=== PATIENT | male | born 1935 | race Caucasian/White ===

== ENCOUNTER → 2023-07-16 11:00 | Outpatient (REF) | payer MEDICARE, SELFPAY ==
[2023-07-16 12:46] LABS: PSA, Total - Diagnostic 6.81 ng/ml (0.0-4.0)
== END ==
LOC: OLABPV 11:00
PROVIDERS: ATTENDING PHYSICIAN Specialist
DX: R35.1 Nocturia (principal)
CPT/HCPCS: 36415; 84153

== ENCOUNTER → 2023-09-12 10:40 | Outpatient (REF) | payer MEDICARE, SELFPAY ==
[2023-09-12 11:30] LABS: Hematocrit 43.2 % (39.0-52.0); Hemoglobin 14.5 g/dL (13.0-18.0)
[2023-09-12 12:39] LABS: Protein/creatinine Ratio 0.5; Urine Protein 36 mg/dl
[2023-09-12 12:51] LABS: Albumin 4.4 g/dl (3.5-5.0); Blood Urea Nitrogen 37 mg/dl (9-20); Calcium 9.5 mg/dl (8.4-10.2); Carbon Dioxide 25 mmol/L (22-30); Chloride 106 mmol/L (98-107); Glucose 90 mg/dl (70-99); Phosphorus 3.9 mg/dl (2.5-4.5); Potassium 4.2 mmol/L (3.5-5.1); Sodium 139 mmol/L (135-145); eGFR 40.93
[2023-09-12 16:19] LABS: Intact PTH 62.3 pg/ml (13.6-85.8)
== END ==
LOC: OLABPV 10:40
PROVIDERS: ATTENDING PHYSICIAN Specialist
DX: N18.32 Chronic kidney disease, stage 3b (principal)
CPT/HCPCS: 36415; 80069; 82570; 83970; 84156; 85014; 85018

== ENCOUNTER 2023-10-11 23:24 | Observation (INO) | payer MEDICARE, BC, SELFPAY ==
[2023-10-11] VITALS (8 sets, daily range): BP systolic 132–161; BP diastolic 73–93
[2023-10-11 18:24] LABS: % Basophils 0.7 % (0-2); % Eosinophils 3.4 % (0-6); % Immature Granulocytes 0.3 % (0-0.5); % Lymphocytes 15.4 % (20.5-51.1); % Monocytes 11.7 % (1.7-9.3); % Neutrophils 68.5 % (42.2-75.2); Absolute Basophils 0.1 10^3/uL (0-0.2); Absolute Eosinophils 0.3 10^3/uL (0-0.7); Absolute Lymphocytes 1.1 10^3/uL (1.2-3.4); Absolute Monocytes 0.9 10^3/uL (0.1-0.6); Hematocrit 40.7 % (39.0-52.0); Hemoglobin 14.4 g/dL (13.0-18.0); Mean Corp Hgb Conc. 35.4 g/dL (33.0-37.0); Mean Corpuscular Hgb 29.4 pg (27.0-31.0); Mean Corpuscular Volume 83.1 fL (80.0-94.0); Mean Platelet Volume 11.5 fL (7.4-10.4); Nucleated Red Blood Cells % 0 % (-); Platelet Count 170 10^3/uL (130-400); Red Cell Dist. Width 15.9 % (11.5-14.5); White Blood Cell Count 7.3 10^3/uL (4.8-10.8)
[2023-10-11] MEDS: NSS 500 IV (18:37)
[2023-10-11] MEDS: ZOFRAN 4 MG IV (18:38)
[2023-10-11] MEDS: TYLENOL 1000 MG PO (18:42)
[2023-10-11 18:47] LABS: Blood Urea Nitrogen 41 mg/dl (9-20); Calcium 9.9 mg/dl (8.4-10.2); Carbon Dioxide 22 mmol/L (22-30); Chloride 105 mmol/L (98-107); Estimated Creatinine Clearance 32 ml/min; Glucose 119 mg/dl (70-99); Sodium 135 mmol/L (135-145); eGFR 38.06
[2023-10-11] MEDS: MORPHINE SULFATE 2 MG IV (20:59)
--- NOTE | 2023-10-11 21:11 | ED.GENMED ---
History of Present Illness
<Agueda Queen PA-C - Last Filed: 10/11/23 22:24>
General
Chief Complaint: Fall
Source: patient
Exam Limitations: none
Time Seen by Provider: 10/11/23 18:01
Nursing documentation reviewed up to this point in time: agreed with
Travel History
Have you had any contact with someone who has COVID-19?: No
Do you have any symptoms of coronavirus? Fever > 100 degrees, chills, cough, shortness of breath, sore throat, loss of taste or smell, muscle aches, or headache?: No
History of Present Illness
History of Present Illness:
pt is a 88 y/o M with h/o afib s/p wtachman, on aspirin, GI bleed remotely, cva/tia
here after he had a fall this afternoon
pt was he walked up a hill to the parking lot and when he got up to the top of the hill, he dosnt' know what hpapened, legs gave out or whatnot but he fell on to right side/back
he did not hit head
he knows he didn't pass out
had no chest pain, preceding symptoms of dizziness, lightheadedness, headache
pt has right sided back pain, worse with changing position and movement
he has no pain with breathing and denies SOB to me, dstpie triage c/o shortness o fbreath
he has nauea and was dry heaving almost mimmediately after this fall
had to be helped by 2 men to be picked up
no hip pain/abdominal pain/confusion
abrasions superfoicial to right arm
Past History
<Agueda Queen PA-C - Last Filed: 10/11/23 22:24>
Past History
ED Past Medical History: Arrthythmia (AFib), Asthma, HTN, Hypercholesterolemia, Other (Parotid mass w/ resection; gout), Other (Nephrolithiasis) and Other (Polycystic kidneys, hypertension)
ED Past Surgical History: Other (Parotid mass w/ resection)
Social History
Tobacco: Non-smoker
Alcohol: Occasional
Drug: None
Personal:
Living: with family (at [employer])
Employment: Retired
Family History
Family History: Other (Polycystic kidney disease)
Review of Systems
<Agueda Queen PA-C - Last Filed: 10/11/23 22:24>
Review of Systems
Allergies reviewed?: Yes
All Other Systems: Not applicable
Phy Exam
<Agueda Queen PA-C - Last Filed: 10/11/23 22:24>
Physical Exam
Physical Exam:
GENERAL: Alert , in no apparent distress
HEAD: NCAT
NECK: no midline tenderness, active ROM intact, no paraspinal muscle tenderness;
EYE: pupils equal and reactive, EOMs intact.
ENT: o/p clr, mmm. no hemotympanum
CARDIAC: Regular rate and rhythm, no edema
BACK: RIGHT SIDED NONTENDER SCAPULA/THORACIC/CVA REGION, NO BRUISING, NO SWELLING
PAIN WITH MOVEMENT
CHEST WALL: NONTENDER
LUNGS: Clear breath sounds bilaterally, no acute respiratory distress, no wheezes/rales/rhonchi
ABDOMEN: Soft, without focal tenderness, no r/g, no cvat
NEUROLOGICAL: Alert and oriented, no focal neuro deficits, CN intact, 5/5 strength, sensation intact
SKIN: Warm and dry, SUPERFIIAL ABRASIONS RIGHT FOREARM
MUSCULOSKELETAL: No edema, well perfused.
PSYCH: Normal and appropriate interaction.
Course
<Agueda Queen PA-C - Last Filed: 10/11/23 22:24>
Orders/Labs/Results
Orders:
Orders
10/11/23 18:00
Electrocardiogram (*1) Urgent
Reason for Study: Vertigo / Dizzy
10/11/23 18:01
EKG- Treatment ONCE
10/11/23 18:13
Basic Metabolic Panel Urgent
Complete Blood Count/With Diff Urgent
10/11/23 18:27
CT Chest/abd/pel W Iv Cont Urgent
Comment:
Reason For Exam: FALL BACKWARDS, RIGHT THORACIC/BACK PAIN, VOMITING
CT Head W/o Iv Contrast Urgent
Comment:
Reason For Exam: FALL BACKWARDS
0.9% Sodium Chloride 500 ml [Nss] 500 ml IV BOLUS
Acetaminophen [Tylenol] 1,000 mg PO NOW STA
Ondansetron Injectable [Zofran] 4 mg IV NOW STA
10/11/23 20:53
Morphine Sulfate 2 mg IV NOW STA
10/11/23 21:06
Potassium Urgent
Troponin I Urgent
Abnormal Lab Results
10/11/23
18:13
RDW 15.9 H %
(11.5-14.5)
MPV 11.5 H fL
(7.4-10.4)
Absolute Lymphs (auto) 1.1 L 10^3/uL
(1.2-3.4)
Absolute Monos (auto) 0.9 H 10^3/uL
(0.1-0.6)
Lymphocytes % 15.4 L %
(20.5-51.1)
Monocytes % 11.7 H %
(1.7-9.3)
BUN 41 H mg/dl
(9-20)
Creatinine 1.7 H mg/dL
(0.7-1.3)
Glucose 119 H mg/dl
(70-99)
10/11/23 18:13
10/11/23 21:06
Vital Signs
Initial and Last Documented VS:
Initial Vital Signs
Temp Pulse Resp BP Pulse Ox
37.4 C 72 18 142/75 95
10/11/23 15:58 10/11/23 15:58 10/11/23 15:58 10/11/23 15:58 10/11/23 15:58
Last Documented Vital Signs
Temp Pulse Resp BP Pulse Ox
37.4 C 72 14 137/73 92
10/11/23 15:58 10/11/23 22:00 10/11/23 22:00 10/11/23 22:00 10/11/23 22:00
<Ulices Bowman MD - Last Filed: 10/11/23 23:01>
Orders/Labs/Results
Orders:
Orders
10/11/23 18:00
Electrocardiogram (*1) Urgent
Reason for Study: Vertigo / Dizzy
10/11/23 18:01
EKG- Treatment ONCE
10/11/23 18:13
Basic Metabolic Panel Urgent
Complete Blood Count/With Diff Urgent
10/11/23 18:27
CT Chest/abd/pel W Iv Cont Urgent
Comment:
Reason For Exam: FALL BACKWARDS, RIGHT THORACIC/BACK PAIN, VOMITING
CT Head W/o Iv Contrast Urgent
Comment:
Reason For Exam: FALL BACKWARDS
0.9% Sodium Chloride 500 ml [Nss] 500 ml IV BOLUS
Acetaminophen [Tylenol] 1,000 mg PO NOW STA
Ondansetron Injectable [Zofran] 4 mg IV NOW STA
10/11/23 20:53
Morphine Sulfate 2 mg IV NOW STA
10/11/23 21:06
Potassium Urgent
Troponin I Urgent
Abnormal Lab Results
10/11/23
18:13
RDW 15.9 H %
(11.5-14.5)
MPV 11.5 H fL
(7.4-10.4)
Absolute Lymphs (auto) 1.1 L 10^3/uL
(1.2-3.4)
Absolute Monos (auto) 0.9 H 10^3/uL
(0.1-0.6)
Lymphocytes % 15.4 L %
(20.5-51.1)
Monocytes % 11.7 H %
(1.7-9.3)
BUN 41 H mg/dl
(9-20)
Creatinine 1.7 H mg/dL
(0.7-1.3)
Glucose 119 H mg/dl
(70-99)
10/11/23 18:13
10/11/23 21:06
Vital Signs
Initial and Last Documented VS:
Initial Vital Signs
Temp Pulse Resp BP Pulse Ox
37.4 C 72 18 142/75 95
10/11/23 15:58 10/11/23 15:58 10/11/23 15:58 10/11/23 15:58 10/11/23 15:58
Last Documented Vital Signs
Temp Pulse Resp BP Pulse Ox
37.4 C 72 14 137/73 92
10/11/23 15:58 10/11/23 22:00 10/11/23 22:00 10/11/23 22:00 10/11/23 22:00
<Agueda Queen PA-C - Last Filed: 10/11/23 22:24>
MDM/Problems Addressed
Differential Diagnosis Includes:
retroperitoneal hem, liver injury, kidney injury, ruptured cyst, rib fracture, concussion
MDM/Problems Addressed:
88 y/o M from home after fall when he walked up a hill today and got to the top and then his legs gave out, landed on right side, has right sided mid to upper back pain
no pleuritic pain, sob
but dry heaving/nausea since the incident
no head strike
only ion asa after having watchmann
no chest pain
on exam pt has some pain with omvement of his trunk but no swelling/tedneress to back/no bruising
faint crackles b/l lungs bases
abdomen nontender
ekg rate controlled afib
labs with stable CKD
gfr> 35
will trauma scan
no neck pain
pt returnd from ct scan no traumatic findings
nothing to explain pain
when pt returned from ct scan, pt walked to bathroom and returned to bed and was dry heaving and then vomited; likely related to pain but thus added on troponin to eval for ACS
the trop was neg
pt received morphine and feels still having pain with moement and gets nauseated with movement
no rib fx identified on ct
seen by ed attending
pt lives alone at [facility] and is not well enough to go home at this point.
will admit
<Agueda Queen PA-C - Last Filed: 10/11/23 22:24>
*Critical Care Note
Total Time (30-74mins, 75-104mins- exclusive of procedures): Not Applicable
ED Attending Note
<Agueda Queen PA-C - Last Filed: 10/11/23 22:24>
-
Portions of this chart may have been created with voice recognition software.� Occasional wrong word or��sound alike� substitutions may have occurred due to the inherent limitations of voice recognition software.
<Ulices Bowman MD - Last Filed: 10/11/23 23:01>
ED Attending Note
Patient seen and examined by attending physician: Yes
ED Attending Note:
I have seen and evaluated the patient with a [id number] encounter. I have spoken to the advance practicer provider and involved in the medical history, the physical exam, medical decision making.
Evaluation and management service: agree unless noted differently below.
Results interpretation: agree unless noted differently below.
Focused HPI: 88-year-old male with history as documented who presents for evaluation after fall. Patient says that he was walking up a incline/hill in a parking lot just prior to arrival here. He says that he lost his balance and fell backwards
and landed on his back. He says he did not hit his head. He sustained some minor abrasions to his arm but no other serious injuries. His only complaint here is significant right flank/back pain. He says that this pain is much worse with any
movement. He says that when the pain gets very intense he gets nausea and he did have some vomiting here. He says that he did not hit his head or lose consciousness, denies headache, denies any neck pain, denies any abdominal pain. On aspirin but
no other blood thinners.
Physical exam: Awake and alert, oriented x 3 with GCS 15. Vital signs normal. No anterior chest wall tenderness but he does have some tenderness in the posterior ribs�specifically ribs 9 and 10 posteriorly (in line with the scapula); he has no
contusion or hematoma in the flank. He has bilateral breath sounds. He has no abdominal tenderness. He has no signs of significant trauma to the extremities and moves them all through full active range of motion without discomfort including
bilateral hips.
Medical Decision Makin-year-old male presents after a fall in a parking lot onto his back complaining of back/flank pain. Vital stable. Exam as above. Sent for labs including a CBC and CMP which were unremarkable�she has a creatinine of 1.7
which is baseline. We checked an EKG and troponin given his nausea�troponin negative. He was sent for a CT head which was negative as well as a CT of the chest/abdomen/pelvis which was negative for fracture, hematoma or any other acute pathology
to account for his pain. Suspect it may be muscular pain due to the fall. He does have significant pain with movement to the point that he becomes nauseated. He lives alone at [facility]. Will plan to admit for pain control, PT eval and case
management with consideration for placement in rehab.
Discharge Plan
Departure
Patient Disposition: Admit
Date of Disposition: 10/11/23
Time of Disposition: 22:24
Admit to: Med/Surg
Presentation/result/management discussed w/ accepting MD/DO: Hospitalist
Condition: Fair
Covid-19: Not Applicable
Discharge Problem:
Back pain, Fall, Vomiting
Prescriptions:
No Action
diltiazem HCl 180 MG capsule,extended release 24hr
180 mg PO DAILY
amlodipine 5 MG tablet
5 mg PO BID
tamsulosin 0.4 MG capsule
0.4 mg PO QPM
allopurinol 300 MG tablet
300 mg PO DAILY
finasteride 5 MG tablet
5 mg PO HS
lisinopril 20 MG tablet
20 mg PO BID
cholecalciferol (vitamin D3) 125 MCG tablet,disintegrating
5,000 unit PO DAILY
acetaminophen 500 mg Capsule
1,000 mg PO Q6HPRN PRN (Reason: mild pain)
pravastatin 40 mg Tablet
40 mg PO HS
bismuth subsalicylate [Pepto-Bismol] 262 mg/15 mL Suspension
524 mg PO DAILYPRN PRN (Reason: stomach issues)
aspirin 81 MG tablet,delayed release (DR/EC)
81 mg PO DAILY
Rx Instructions:
Please take daily!
Referrals:
Ivan Chacko MD [Family Provider] -
Interventions
Interventions:
*Risk Screen - Suicide Last Done: 10/11/23 18:02
*General Assessment Last Done: 10/11/23 18:02
*Neglect/Abuse Screening Last Done: 10/11/23 18:02
*ED COVID-19 Vaccine History Last Done: 10/11/23 15:58
ED-Musculoskeletal Assessment Last Done: 10/11/23 18:22
ED- Neurological Assessment Last Done: 10/11/23 18:22
ED-Skin Assessment Last Done: 10/11/23 18:22
Discharge Date and Time
Print Language: MAURITIAN
[2023-10-11 21:19] LABS: Potassium 4.3 mmol/L (3.5-5.1)
[2023-10-11 21:34] LABS: Troponin I 0.013 ng/ml
--- NOTE | 2023-10-11 23:23 | HPS.HSE ---
Family Physician
-
Family Physician: Ivan Chacko
Chief Complaint
-
Fall
History of Present Illness
The patient is an 88 yo male with PMH significant a.fib s/p Watchman, not on anticoagulation due to GI bleeds, asthma, HTN, HLD, Parotid mass s/p resection, gout, polycystic kidney disease, HTN, who presents to the ED due to fall that occurred today
after walking up a big hill. The patient denies associated CP, no SOB, no palpitations, nor LOC. He has associated right-sided back pain and rib pain, and had episodes of vomiting in the ED associated with ambulation. He does not think that he
passed out. He denies active dizziness, no lightheadedness, no known syncope. CT head no acute pathology, CT chest/abd/pelvis shows no rib fractures, positive for moderate pericardial effusion. Small hiatal hernia noted.
ED txt: IV Zofran, IVF 500 mL bolus, Tylenol PO, Morphine 2 mg IV
Medical History
Past Medical History
Past Medical History: Reports Other
Additional Past Medical History:
Atrial fibrillation, paroxysmal s/p Watchman
Essential Hypertension
Hyperlipidemia
CKD Stage IIIb
Polycystic Kidney Disease
Hx CVA
BPH
Gout
Past Surgical History: Reports Other
Additional Past Surgical History:
Tonsillectomy
B/L Cataracts
Superficial right parotidectomy
Social History
Tobacco: Non-smoker
Alcohol: None
Family History
Family History: Not pertinent
Allergies / Home Medications
Allergies reflects when Allergies were last updated in [facility].
Home Medications with original date entered in [facility]
Allergy/Medication List:
Allergies
Allergy/AdvReac Type Severity Reaction Status Date / Time
grass pollen Allergy nasal Verified 10/11/23 16:05
congestion
tree and shrub pollen Allergy nasal Verified 10/11/23 16:05
congestion
Home Medications
allopurinol 300 mg tablet 300 mg PO DAILY Gout 03/19/20
amlodipine 5 mg tablet 5 mg PO BID Blood pressure 03/19/20
diltiazem HCl 180 mg capsule,extended release 24 hr 180 mg PO DAILY Heart disease/condition 03/19/20
finasteride 5 mg tablet 5 mg PO HS Urinary issue 03/19/20
tamsulosin 0.4 mg capsule 0.4 mg PO QPM Urinary issue 03/19/20
lisinopril 20 mg tablet 20 mg PO BID Blood pressure 12/20/20
cholecalciferol (vitamin D3) 125 mcg (5,000 unit) disintegrating tablet 5,000 unit PO DAILY Supplement 02/09/21
acetaminophen 500 mg capsule 1,000 mg PO Q6HPRN PRN mild pain 12/04/21
bismuth subsalicylate 262 mg/15 mL oral suspension (Pepto-Bismol) 524 mg PO DAILYPRN PRN stomach issues 12/04/21
pravastatin 40 mg tablet 40 mg PO HS High cholesterol 12/04/21
aspirin 81 mg tablet,delayed release 81 mg PO DAILY Heart disease/condition 12/05/21
Review of Systems
-
A 12 point ROS was completed and negative except as noted: Yes
Physical Exam
Vital Signs
Vital Signs
Temp Pulse Resp BP Pulse Ox
99.3 F 68 10 133/87 98
10/11/23 15:58 10/11/23 22:45 10/11/23 22:45 10/11/23 23:00 10/11/23 23:00
Physical Exam
General: Well Developed, Well Nourished, No Apparent Distress, Comfortable and Conversant
HEENT: NormoCephalic, Anicteric and Moist mucous membranes
Cardiac: Irregular Rhythm
GI: Soft, Non Tender and Non Distended
Musculoskeletal: No Clubbing, No Cyanosis and No Edema
Skin: Warm and Dry
Neuro: AO x 3 and No Motor Deficits
Psych: Calm
Laboratory Results
-
10/11/23 18:13
10/11/23 21:06
Laboratory Results
Total Bilirubin Cancelled 10/11/23 18:13
AST Cancelled 10/11/23 18:13
ALT Cancelled 10/11/23 18:13
Alkaline Phosphatase Cancelled 10/11/23 18:13
Troponin I 0.013 ng/ml 10/11/23 21:06
Impression/Plan
-
IMPRESSION:The patient is an 88 yo male with PMH significant a.fib s/p Watchman, not on anticoagulation due to GI bleeds, asthma, HTN, HLD, Parotid mass s/p resection, gout, polycystic kidney disease, HTN, who presents to the ED due to fall that
occurred today after walking up a big hill. The patient denies associated CP, no SOB, no palpitations, nor LOC. CT head no acute pathology, CT chest/abd/pelvis shows no rib fractures, positive for moderate pericardial effusion. Small hiatal hernia
noted.
ED txt: IV Zofran, IVF 500 mL bolus, Tylenol PO, Morphine 2 mg IV
#Fall, likely mechanical, however due to comorbidities and fall related to exertion with unknown etiology, will monitor on tele overnight, possible vasovagal in setting of nausea/vomiting
-tele
-gentle IVF
-IV anti-emetics
#Pericardial effusion, moderate, incidental findings on CT
-Tele monitoring overnight
-echocardiogram ordered
#Polycystic Kidney disease, CKD Stage IIIb Creat 1.7
-Innumerable renal cysts again seen compatible with PCKD. Small nonobstructing renal calculus.
-renal function close to baseline
-IVF overnight
-repeat labs in am
#Other incidental findings on CT:
-1.5 cm left lobe hepatic cysts and additional subcentimeter low-attenuation hepatic lesions too small to characterize.
-Cholelithiasis, likely asymptomatic
-Enlarged prostate.
-Likely small fat only containing left inguinal hernia.
-Small hiatal hernia.
#Atrial fibrillation, paroxysmal s/p Watchman, rate controlled
-cont Dilt
#Essential Hypertension
-Diltiazem and Lisinopril with hold parameters
#Hyperlipidemia
-Pravastain 40 mg
#Hx CVA
-continue baby aspirin
#BPH
#Gout
-allopurinol
DVT proph- PCDs
DNR per discussion with patient/patient wishes
[2023-10-12] VITALS (9 sets, daily range): BP systolic 128–154; BP diastolic 32–93; PULSE 71–73; BMI 28.8
[2023-10-12] MEDS: NSS 1000 IV (02:21)
[2023-10-12] MEDS: MORPHINE SULFATE 2 MG IV (02:21)
[2023-10-12 06:42] LABS: Blood Urea Nitrogen 32 mg/dl (9-20); Calcium 8.8 mg/dl (8.4-10.2); Carbon Dioxide 22 mmol/L (22-30); Chloride 108 mmol/L (98-107); Estimated Creatinine Clearance 37 ml/min; Glucose 100 mg/dl (70-99); Potassium 4.2 mmol/L (3.5-5.1); Sodium 138 mmol/L (135-145); eGFR 52.51
[2023-10-12] MEDS: ULTRAM 50 MG PO (08:23)
[2023-10-12] MEDS: ZESTRIL 20 MG PO ×2 (08:24→20:04)
[2023-10-12] MEDS: CARDIZEM CD 180 MG PO (08:24)
[2023-10-12] MEDS: ASPIR LOW (ENTERIC COATED) 81 MG PO (08:24)
[2023-10-12] MEDS: TYLENOL 650 MG PO (08:24)
[2023-10-12] MEDS: ZYLOPRIM 300 MG PO (08:24)
[2023-10-12] MEDS: NORVASC 5 MG PO ×2 (08:24→20:04)
--- NOTE | 2023-10-12 10:47 | W.PN.HOSP.TC ---
Today's Communication/Plan
-
Orthostatic vitals
PT/OT
Echocardiogram
Assessment / Plan
Assessment / Plan
Gen-AAOx3, NAD
HEENT-NC, AT, anicteric, clear oral mm
Neck-supple
CV-reg, no M, +S1/S2
Lungs-clear B/L
Abd-soft, NT, ND
Ext-no edema
Musculoskeletal-no cyanosis, clubbing, mildly tender right lateral thoracic area
Skin-warm and dry
Neuro-grossly non-focal
Psych-calm, cooperative
Fall -likely mechanical. Unclear if he truly syncopized but patient believes he did not. Check orthostatic vitals. PT/OT.
Pericardial effusion -moderate on CT. Check echocardiogram. Hemodynamically stable.
Paroxysmal atrial fibrillation -status post Watchman device. Not on anticoagulation. Continue low-dose aspirin.
Polycystic kidney disease
CKD 3B -stable.
Essential hypertension -stable.
Hyperlipidemia -on pravastatin.
History of stroke
BPH
DNR
Anticipated Discharge: Within 24 hours
Subjective/Interval History
-
Date of Service: October 12, 2023
Patient seen and examined. No complaints other than pain in his right lateral back.
Objective Data
-
Labs:
Laboratory Results
10/12/23
05:51
Sodium 138
Potassium 4.2
Chloride 108 H
Carbon Dioxide 22
BUN 32 H
Creatinine 1.3
Glucose 100 H
Calcium 8.8
Vital Signs:
Vital Signs
Temp Pulse Resp BP Pulse Ox
97.7 F 79 16 143/72 96
10/12/23 07:36 10/12/23 08:24 10/12/23 07:36 10/12/23 08:24 10/12/23 07:36
I&O
10/11/23 10/12/23 10/13/23
06:59 06:59 06:59
Intake Total 250 / 250
Output Total 600 / 600
Balance -350 / -350
Review of Systems
-
History Source: Patient
All other systems: Reviewed and negative
--- NOTE | 2023-10-12 14:17 | CM ---
Alert awake oriented patient who lives alone in independent living at [facility].step to enter and 15 steps to bed and bathroom. He is independent in driving and in all activities of daily living.He was offered VN he declined
need.Sebastián son will drive him home at in.[place] letter given and explained. Copy unsigned on chart. Pt declined to sign.
No VN hx / No SNF history
[facility] or [facility]
PCP DR Dr Sebastián Chacko
PLAN Home Declined VN
[2023-10-12] MEDS: FLOMAX PO (17:01)
--- NOTE | 2023-10-12 18:18 | PTCARENOTE ---
Offered patient the option to switch rooms, due to confusion of room mate. Patient refused and decided to stay in 402.1.
[2023-10-12] MEDS: PRAVACHOL 40 MG PO (20:05)
[2023-10-12] MEDS: PROSCAR 5 MG PO (20:05)
[2023-10-12] MEDS: FLOMAX 0.400000000000000022 MG PO (20:52)
[2023-10-13] VITALS (10 sets, daily range): BP systolic 132–165; BP diastolic 80–105
--- NOTE | 2023-10-13 01:30 | PTCARENOTE ---
14 beats of VT @ 0115. Pt asymptomatic; sleeping. BP 145/89 POX on R/A 89 - 91%. O2 applied @ 2L. D Michael NAIDU notified. Labs added for am. Pt now back in [facility].
[2023-10-13 07:35] LABS: Blood Urea Nitrogen 29 mg/dl (9-20); Calcium 9.4 mg/dl (8.4-10.2); Carbon Dioxide 24 mmol/L (22-30); Chloride 105 mmol/L (98-107); Estimated Creatinine Clearance 35 ml/min; Glucose 98 mg/dl (70-99); Magnesium 2.2 mg/dl (1.6-2.3); Potassium 4.5 mmol/L (3.5-5.1); Sodium 138 mmol/L (135-145); eGFR 48.04
--- NOTE | 2023-10-13 09:00 | W.PN.HOSP.TC ---
Today's Communication/Plan
-
IV Lopressor as needed. Echocardiogram today. Cardiology eval
Assessment / Plan
Assessment / Plan
Gen-AAOx3, NAD
HEENT-NC, AT, anicteric, clear oral mm
Neck-supple
CV-irreg, tachycardic, no M, +S1/S2
Lungs-clear B/L
Abd-soft, NT, ND
Ext-no edema
Musculoskeletal-no cyanosis, clubbing, mildly tender right lateral thoracic area
Skin-warm and dry
Neuro-grossly non-focal
Psych-calm, cooperative
A/P:
#Fall, likely mechanical, however due to comorbidities and fall related to exertion with unknown etiology, will monitor on tele overnight, possible vasovagal in setting of nausea/vomiting
-tele
-gentle IVF
-IV anti-emetics
-orthostatics
-echo pending
-Cardiology consult today (Dorris texted cardiology today)
#Pericardial effusion, moderate, incidental findings on CT
-Tele monitoring overnight
-echocardiogram ordered adn pending
#Polycystic Kidney disease, CKD Stage IIIb Creat 1.7
-Innumerable renal cysts again seen compatible with PCKD. Small nonobstructing renal calculus.
-renal function close to baseline
-IVF overnight
-repeat labs in am
#Other incidental findings on CT:
-1.5 cm left lobe hepatic cysts and additional subcentimeter low-attenuation hepatic lesions too small to characterize.
-Cholelithiasis, likely asymptomatic
-Enlarged prostate.
-Likely small fat only containing left inguinal hernia.
-Small hiatal hernia.
#Atrial fibrillation, paroxysmal s/p Watchman, rate controlled
-cont Dilt
-Added IV Lopressor for tachycardia
#Essential Hypertension
-Diltiazem and Lisinopril with hold parameters
#Hyperlipidemia
-Pravastain 40 mg
#Hx CVA
-continue baby aspirin
#BPH
#Gout
-allopurinol
DVT proph- PCDs
DNR
Anticipated Discharge: 24 - 48 hours
Subjective/Interval History
-
Date of Service: October 13, 2023
Patient denies chest pain or shortness of breath today.
Objective Data
-
Labs:
Laboratory Results
10/13/23
06:18
Sodium 138
Potassium 4.5
Chloride 105
Carbon Dioxide 24
BUN 29 H
Creatinine 1.4 H
Glucose 98
Calcium 9.4
Vital Signs:
Vital Signs
Temp Pulse Resp BP Pulse Ox
98.1 F 101 16 144/80 94
10/13/23 08:41 10/13/23 08:41 10/13/23 08:41 10/13/23 08:41 10/13/23 08:41
I&O
10/12/23 10/13/23 10/14/23
06:59 06:59 06:59
Intake Total 250 / 250 1800 / 1800
Output Total 600 / 600
Balance -350 / -350 1800 / 1800
[2023-10-13] MEDS: ZESTRIL 20 MG PO ×2 (09:10→21:37)
[2023-10-13] MEDS: ASPIR LOW (ENTERIC COATED) 81 MG PO (09:10)
[2023-10-13] MEDS: NORVASC 5 MG PO ×2 (09:11→21:36)
[2023-10-13] MEDS: ZYLOPRIM 300 MG PO (09:11)
[2023-10-13] MEDS: CARDIZEM CD 180 MG PO (09:11)
--- NOTE | 2023-10-13 10:19 | CM ---
Addendum entered by Nelia Whitt 10/13/23 10:26:
Patient lives in independent living not [facility] and was ambulating 180 ft. per PT recommendation; most likely does not need VN. CM will continue to follow for discharge planning needs.
Original Note:
CM called to Liaison Ce Mann and left message asking for return call.
--- NOTE | 2023-10-13 15:27 | CON.CAR ---
Addendum entered and electronically signed by Arden Coleman MD 10/13/23 16:21:
87-year-old man admitted with suspected mechanical fall. He does not have complete recall of the moment of his fall however. He has a history of permanent atrial fibrillation and Watchman, found to have small to moderate pericardial effusion by
echo after CT scan suggested moderate pericardial effusion. Still drives, exercises 6 days a week
PMH: Polycystic kidney disease 3A/B, permanent atrial fibrillation, not anticoagulated with Watchman in place, hypertension, CVA 2014, gout, hypercholesterolemia, history of nephrolithiasis, lower GI bleeding from diverticular disease, asthma
Allergies: None to meds
Outpatient meds reviewed, cardiac meds are amlodipine 5 twice daily, aspirin 81 mg a day, diltiazem ER 180 mg a day, lisinopril 20 mg twice daily, pravastatin 40 mg at bedtime
PSH: Tonsillectomy, right parotid surgery, cataracts, numerous dermatologic procedures, Watchman, arthroscopic left shoulder surgery
FH: Noncontributory from cardiac standpoint
SH: Non-smoker, rare alcohol retired linux unix engineer, from [place], lives at [facility]
ROS: Negative except as above
144/82, pulse 81, resp rate 18, afebrile, head neck exam unremarkable, lungs are clear, regular rate and rhythm very soft systolic murmur at apex abdomen benign extremities without clubbing cyanosis or edema distal pulses intact, some abrasions on
right wrist, complaining of back pain
BUN and creatinine are 29 and 1.4, CO2 is 24
A-fib, LVH, left anterior fascicular block, equivocal anteroseptal MO
Impression:
Presented w/ fall
Back/rib pain
Pericardial effusion
Persistent atrial fibrillation
s/p Watchman device implant 02/20/21NSVT
HTN
HLD
CKD3b
CVA (2014)
h/o GIB/Diverticular bleeds (2019)
RBBB
h/o parotid tumor
Plan:
He presents with what could have been a mechanical fall, though we are not 100% certain movements.
Rate control of atrial fibrillation is good and by report he has not been orthostatic. There have been no pauses on telemetry.
He has a pericardial effusion, preliminarily is small to moderate though official read has not yet been completed. There is no evidence of hemodynamic compromise.
Presuming that effusion is truly small to moderate, would simply repeat echo in 2 to 4 weeks.
Given we are not 100% certain this was a mechanical fall, would favor 2 weeks of monitoring with [employer] and limiting driving until monitor has been completed.
No objection to discharge in a.m. if stable.
Original Note:
Consultation
Consultation Request
Date/Time Consultation Requested: 10/13/2023
Date/Time Consultation Performed: 10/13/2023
Requesting Provider: Dr. Salazar
Performing Provider: Dr. FRANKLYN Coleman
Reason for Consultation: Pericardial effusion
Medical History
-
History of Present Illness:
HPI: Ranjit is an 88 year old male with PMH of persistent atrial fibrillation s/p Watchman implant, HTN, HLD, CKD, CVA, prior GIB, and RBBB who presented to [facility] for evaluation after a fall. He was walking and suddenly his legs gave out. He
remembers falling and denies any syncope. He landed on his R back/chest and has had pain since the fall. He denies hitting his head. He did vomit after the fall. He denies any prodromal symptoms of dizziness/lightheadedness. He had CT scan in the ER
which showed moderate pericardial effusion. No other significant abnormalities noted. He denies any SOB or chest pain other than the pain along his ribs from the fall. He has been hemodynamically stable throughout his hospitalization. Orthostatic
vitals were negative. He remains in Afib on review of telemetry and HRs have been stable. He has had no further falls. Cardiology consulted for evaluation given pericardial effusion seen on CT scan.
PMH:
Persistent atrial fibrillation
s/p Watchman device implant 02/20/21
HTN
HLD
CKD3b
CVA (2015)
h/o GIB/Diverticular bleeds (2019)
RBBB
h/o parotid tumor
Past Medical History
Past Medical History: Other (In HPI)
Past Surgical History: Cardiac (Watchman device implant 02/2021.), Tonsilectomy and Other (R superficial parotidectomy w/ facial nerve dissection, cataract surgery, L shoulder arthroscopy)
Social History
Tobacco: Non-Smoker
Alcohol: None
Drug: None
Personal:
Living: Assisted Living
Employment: Retired
Family History
Family History: Reviewed & Not Pertinent
Allergies / Home Medications
Allergy/AdvReac Type Severity Reaction Status Date / Time
grass pollen Allergy nasal Verified 10/11/23 16:05
congestion
tree and shrub pollen Allergy nasal Verified 10/11/23 16:05
congestion
�Medication �Instructions �Recorded �Confirmed �Type
allopurinol 300 mg tablet 300 mg PO DAILY Gout 03/19/20 10/11/23 History
amlodipine 5 mg tablet 5 mg PO BID Blood pressure 03/19/20 10/11/23 History
diltiazem HCl 180 mg 180 mg PO DAILY Heart 03/19/20 10/11/23 History
capsule,extended release 24 hr disease/condition
finasteride 5 mg tablet 5 mg PO HS Urinary issue 03/19/20 10/11/23 History
tamsulosin 0.4 mg capsule 0.4 mg PO QPM Urinary issue 03/19/20 10/11/23 History
lisinopril 20 mg tablet 20 mg PO BID Blood pressure 12/20/20 10/11/23 History
cholecalciferol (vitamin D3) 125 5,000 unit PO DAILY Supplement 02/09/21 10/11/23 History
mcg (5,000 unit) disintegrating
tablet
acetaminophen 500 mg capsule 1,000 mg PO Q6HPRN PRN mild pain 12/04/21 10/11/23 History
bismuth subsalicylate 262 mg/15 mL 524 mg PO DAILYPRN PRN stomach 12/04/21 10/11/23 History
oral suspension (Pepto-Bismol) issues
pravastatin 40 mg tablet 40 mg PO HS High cholesterol 12/04/21 10/11/23 History
aspirin 81 mg tablet,delayed 81 mg PO DAILY Heart 12/05/21 10/11/23 History
release disease/condition
Review of Systems
-
History Source: Patient
All other systems: Negative unless noted
Physical Exam
Vital Signs
Temp Pulse Resp BP Pulse Ox
97.8 F 81 18 144/82 98
10/13/23 11:37 10/13/23 11:37 10/13/23 11:37 10/13/23 11:40 10/13/23 11:37
Lab Results
10/11/23 18:13
10/13/23 06:18
Troponin I 0.013 ng/ml 10/11/23 21:06
Physical Exam
General: Well Developed, Well Nourished and No Apparent Distress
HEENT: Normocephalic, Anicteric and Moist Mucous Membranes
Respiratory: Clear and Non Labored Respirations
Cardiac: S1/S2 and Irregular Rhythm
Musculoskeletal: No Clubbing, No Cyanosis and No Edema
Skin: Warm
Neuro: AO x 3 and Nonfocal/Grossly Intact
Psych: Calm
Impression / Plan
-
PCP: Dr. Chacko
Supervisor Opening And Picking: Dr. Gatica
Impression:
Presented w/ fall
Back/rib pain
Pericardial effusion
Persistent atrial fibrillation
s/p Watchman device implant 02/20/21
NSVT
HTN
HLD
CKD3b
CVA (2014)
h/o GIB/Diverticular bleeds (2019)
RBBB
h/o parotid tumor
TONY 04/19/2021: EF 55-60%, mild MR, trace AR, s/p watchman w/ no leak or thrombus
Echo 10/13/2023: Study completed, report pending
Plan:
-Presented with fall and back/rib pain. Fall was mechanical in nature and he denies any syncope or near syncope.
-Orthostatic VS negative. BP has been stable. Continue lisinopril, diltiazem, and amlodipine
-CT scan negative for rib fracture, however he was noted to have moderate pericardial effusion.
-Echo completed 10/12 and preliminary report w/ small-moderate pericardial effusion w/o evidence of hemodynamic compromise. Await final report.
-He denies any SOB, chest pain, or dizziness.
-Will follow for now and will arrange follow up echo to reassess as OP.
-Check TSH. K and mag stable.
-Remains in afib on review of telemetry. EKG on arrival Afib w/ incomplete RBBB. HR 82. Continue diltiazem 180mg daily for rate control
-On aspirin alone for anticoagulation s/p Watchman implant 02/20/2021.
-Brief run of NSVT noted on telemetry 10/12. Asymptomatic/asleep. Continue aspirin. Trop negative.
-Will arrange cardiology follow up.
HPI: Ranjit is an 88 year old male with PMH of persistent atrial fibrillation s/p Watchman implant, HTN, HLD, CKD, CVA, prior GIB, and RBBB who presented to [facility] for evaluation after a fall. He was walking and suddenly his legs gave out. He
remembers falling and denies any syncope. He landed on his R back/chest and has had pain since the fall. He denies hitting his head. He did vomit after the fall. He denies any prodromal symptoms of dizziness/lightheadedness. He had CT scan in the ER
which showed moderate pericardial effusion. No other significant abnormalities noted. He denies any SOB or chest pain other than the pain along his ribs from the fall. He has been hemodynamically stable throughout his hospitalization. Orthostatic
vitals were negative. He remains in Afib on review of telemetry and HRs have been stable. He has had no further falls. Cardiology consulted for evaluation given pericardial effusion seen on CT scan.
Data Reviewed
-
EKG: Tracing Personally Visualized and interpreted
CT Scan: Report Reviewed by me
Labs: Labs Reviewed by me
Old Records: Reviewed
[2023-10-13] MEDS: FLOMAX 0.400000000000000022 MG PO (17:21)
[2023-10-13] MEDS: PROSCAR 5 MG PO (21:37)
[2023-10-13] MEDS: PRAVACHOL 40 MG PO (21:38)
[2023-10-14 03:18] VITALS: BP 142/93
[2023-10-14 04:54] LABS: Hematocrit 40.5 % (39.0-52.0); Hemoglobin 13.8 g/dL (13.0-18.0); Mean Corp Hgb Conc. 34.1 g/dL (33.0-37.0); Mean Corpuscular Volume 85.1 fL (80.0-94.0); Mean Platelet Volume 11.5 fL (7.4-10.4); Platelet Count 160 10^3/uL (130-400); Red Blood Cell Count 4.76 10^6/uL (4.70-6.10); Red Cell Dist. Width 15.4 % (11.5-14.5); White Blood Cell Count 6.7 10^3/uL (4.8-10.8)
[2023-10-14 05:24] LABS: Blood Urea Nitrogen 29 mg/dl (9-20); Carbon Dioxide 25 mmol/L (22-30); Chloride 107 mmol/L (98-107); Estimated Creatinine Clearance 37 ml/min; Glucose 93 mg/dl (70-99); Sodium 140 mmol/L (135-145); eGFR 52.51
[2023-10-14 07:25] VITALS: BP 160/90
[2023-10-14 07:30] VITALS: BP 160/90
--- NOTE | 2023-10-14 08:17 | W.PN.HOSP.TC ---
Today's Communication/Plan
-
Discharge planning today
Assessment / Plan
Assessment / Plan
Gen-AAOx3, NAD
HEENT-NC, AT, anicteric, clear oral mm
Neck-supple
CV-irreg, tachycardic, no M, +S1/S2
Lungs-clear B/L
Abd-soft, NT, ND
Ext-no edema
Musculoskeletal-no cyanosis, clubbing, mildly tender right lateral thoracic area
Skin-warm and dry
Neuro-grossly non-focal
Psych-calm, cooperative
Echocardiogram:
Mild concentric left ventricular hypertrophy. Normal left ventricular chamber
size. Normal left ventricular systolic function. Left ventricular ejection
fraction is 62%, by Forman's method. Diastolic function indeterminate due to
atrial fibrillation.
Thickened mitral valve leaflets. Mitral valve opens normally. Mild to moderate
mitral regurgitation.
Trileaflet aortic valve. Aortic valve opens normally. Mild aortic
regurgitation.
Tricuspid valve opens normally. Moderate to severe tricuspid regurgitation.
Estimated pulmonary artery pressure of 45 mmHg, assuming a right atrial
pressure of 3 mmHg.
Small to moderate pericardial effusion seen with the largest area measuring 1.7
cm, posterior to the left ventricle. Pericardial effusion is not
hemodynamically significant.
Since TONY April 2021, there is now moderate to severe TR and small to
moderate pericardial effusion.
A/P:
#Fall, likely mechanical, however due to comorbidities and fall related to exertion with unknown etiology, will monitor on tele overnight, possible vasovagal in setting of nausea/vomiting
-tele
-gentle IVF
-IV anti-emetics
-orthostatics
-echo with results as above
-Cardiology consult appreciated.
-Outpatient cardiac monitoring
-Medically ready for discharge today
-Discussed with son at bedside today
#Pericardial effusion, moderate, incidental findings on CT
-Tele monitoring overnight
-echocardiogram done
#Polycystic Kidney disease, CKD Stage IIIb Creat 1.7
-Innumerable renal cysts again seen compatible with PCKD. Small nonobstructing renal calculus.
-renal function close to baseline
-IVF overnight
-repeat labs in am
#Other incidental findings on CT:
-1.5 cm left lobe hepatic cysts and additional subcentimeter low-attenuation hepatic lesions too small to characterize.
-Cholelithiasis, likely asymptomatic
-Enlarged prostate.
-Likely small fat only containing left inguinal hernia.
-Small hiatal hernia.
#Atrial fibrillation, paroxysmal s/p Watchman, rate controlled
-cont Dilt
-Added IV Lopressor for tachycardia
#Essential Hypertension
-Diltiazem and Lisinopril with hold parameters
#Hyperlipidemia
-Pravastain 40 mg
#Hx CVA
-continue baby aspirin
#BPH
#Gout
-allopurinol
DVT proph- PCDs
DNR
Anticipated Discharge: Today
Subjective/Interval History
-
Date of Service: October 14, 2023
No new complaints.
Objective Data
-
Labs:
Laboratory Results
10/14/23
04:16
WBC 6.7
Hgb 13.8
Hct 40.5
Plt Count 160
Sodium 140
Potassium 4.0
Chloride 107
Carbon Dioxide 25
BUN 29 H
Creatinine 1.3
Glucose 93
Calcium 9.0
Vital Signs:
Vital Signs
Temp Pulse Resp BP Pulse Ox
97.4 F 78 16 142/93 95
10/14/23 03:18 10/14/23 03:18 10/14/23 03:18 10/14/23 03:18 10/14/23 03:18
I&O
10/13/23 10/14/2310/14/24
06:59 06:59 06:59
Intake Total 1800 / 1800 660 / 660
Balance 1800 / 1800 660 / 660
[2023-10-14] MEDS: CARDIZEM CD 180 MG PO (08:48)
[2023-10-14] MEDS: ZESTRIL 20 MG PO (08:48)
[2023-10-14] MEDS: ASPIR LOW (ENTERIC COATED) 81 MG PO (08:48)
[2023-10-14] MEDS: ZYLOPRIM 300 MG PO (08:49)
[2023-10-14] MEDS: NORVASC 5 MG PO (08:49)
--- NOTE | 2023-10-14 10:43 | CM ---
Addendum entered by Yomaira Luna RN 10/14/23 14:29:
entered order for discharge.
Son drove him home.
PLAN Home no needs
Original Note:
PT indicated no skilled needs.
Offered VN at admission he declined need.
Continues with testing.
CM will continue to assess and assist with dc planning.
PLAN Home no needs
--- NOTE | 2023-10-14 11:34 | W.DCSUMMARY ---
Discharge Summary
Discharge Data
Date of Admission: 10/11/23
Date of Discharge: 10/14/23
-
Pending Results: No
Hospital Course
Patient 88 years old male with history hypertension, hyperlipidemia, CVA, CKD, A-fib presented to the hospital with fall. Patient was found to have a mechanical fall although not clear if any other etiologies implicated. Cardiology consulted. He
was kept on telemetry and no acute abnormality seen. He had an echocardiogram with no pericardial effusion, small to moderate and will need follow-up as outpatient. Patient has participated with PT and OT throughout this hospital stay. Cardiology
recommended outpatient cardiac monitoring and limiting driving until monitor has been completed. Otherwise, patient is hemodynamically stable and cardiology cleared him for discharge today. He will be discharged in stable condition today.
Discharge Plan
-
Patient Disposition: Home (Routine Discharge)
Discharge Diagnosis/Procedures: Syncope. Pericardial effusion. Persistent atrial fibrillation.
Diet: Low Cholesterol
Activity: As tolerated
Driving Restrictions: Until youth nutritional monitor completed outpatient.
Blood Work: Please PCP to order CBC, BMP within 1 week
Referrals:
Karo Vásquez PA-C [Specified Professional Personl] - 11/10/23 2:00 pm (You have a cardiology follow up appointment at the [facility]. Please call with questions. )
Ivan Chacko MD [Family Provider] - in less than 1 week
Additional Discharge Medication Instructions: You are scheduled for follow up echo study on 11/06/23 @4:00PM at -cardiac services to reeval pericardial effusion. Please call with questions.
Please come to [facility] office 10/15/23 @10:00AM to have 7 day youth nutritional monitor placed.
Prescriptions:
Continued
diltiazem HCl 180 MG capsule,extended release 24hr
180 mg PO DAILY
amlodipine 5 MG tablet
5 mg PO BID
tamsulosin 0.4 MG capsule
0.4 mg PO QPM
allopurinol 300 MG tablet
300 mg PO DAILY
finasteride 5 MG tablet
5 mg PO HS
lisinopril 20 MG tablet
20 mg PO BID
cholecalciferol (vitamin D3) 125 MCG tablet,disintegrating
5,000 unit PO DAILY
acetaminophen 500 mg Capsule
1,000 mg PO Q6HPRN PRN (Reason: mild pain)
pravastatin 40 mg Tablet
40 mg PO HS
bismuth subsalicylate [Pepto-Bismol] 262 mg/15 mL Suspension
524 mg PO DAILYPRN PRN (Reason: stomach issues)
aspirin 81 MG tablet,delayed release (DR/EC)
81 mg PO DAILY
Rx Instructions:
Please take daily!
Discharge Orders:
Discharge Patient (As Directed); Ordered 10/14/23
Ordered By: Messi Salazar
Discharge Date and Time
Discharge Date/Time: 10/14/23 12:34
Print Language: UZBEK
[2023-10-14 11:41] VITALS: BP 132/81
--- NOTE | 2023-10-14 13:58 | W.PN.CARDCBS ---
Today's Communication / Plan
-
Stable cardiology status for discharge
Arrange outpatient monitor
Check echo in 4 weeks
Impression / Plan
-
PCP: Dr. Chacko
Roto Rooter Operator: Dr. Gatica
Impression:
Presented w/ fall
Back/rib pain
Small to moderate pericardial effusion 10/13/2023
Persistent atrial fibrillation
s/p Watchman device implant 02/20/21
NSVT
HTN
HLD
CKD3b
CVA (2014)
h/o GIB/Diverticular bleeds (2014, 2019)
RBBB
h/o parotid tumor
TONY 04/19/2021: EF 55-60%, mild MR, trace AR, s/p watchman w/ no leak or thrombus
Echo 10/13/2023: Study completed, report pending
Plan:
Small to moderate pericardial effusion is likely of no clinical significance
However will check echocardiogram in 4 weeks as an outpatient
Will arrange monitor given it is unclear whether patient had fall versus syncope.
Brief run of NSVT noted on telemetry 10/12.
Discussed with primary service and stable cardiology status for discharge
HPI: Ranjit is an 88 year old male with PMH of persistent atrial fibrillation s/p Watchman implant, HTN, HLD, CKD, CVA, prior GIB, and RBBB who presented to [facility] for evaluation after a fall. He was walking and suddenly his legs gave out. He
remembers falling and denies any syncope. He landed on his R back/chest and has had pain since the fall. He denies hitting his head. He did vomit after the fall. He denies any prodromal symptoms of dizziness/lightheadedness. He had CT scan in the ER
which showed moderate pericardial effusion. No other significant abnormalities noted. He denies any SOB or chest pain other than the pain along his ribs from the fall. He has been hemodynamically stable throughout his hospitalization. Orthostatic
vitals were negative. He remains in Afib on review of telemetry and HRs have been stable. He has had no further falls. Cardiology consulted for evaluation given pericardial effusion seen on CT scan.
Progress Note - Roto [employer]er Operator
Subjective
Date of Service: October 14, 2023
No complaints
Objective
Labs:
10/14/23 04:16
10/14/23 04:16
Labs
Hgb 13.8 g/dL (13.0-18.0) 10/14/23 04:16
Hct 40.5 % (39.0-52.0) 10/14/23 04:16
Plt Count 160 10^3/uL (130-400) 10/14/23 04:16
Sodium 140 mmol/L (135-145) 10/14/23 04:16
Potassium 4.0 mmol/L (3.5-5.1) 10/14/23 04:16
BUN 29 mg/dl (9-20) H 10/14/23 04:16
Creatinine 1.3 mg/dL (0.7-1.3) 10/14/23 04:16
Glucose 93 mg/dl (70-99) 10/14/23 04:16
Troponins
10/11/23
21:06
Troponin I 0.013
Vital Signs and I&O:
Vital Signs
Temp Pulse Resp BP Pulse Ox
97.7 F 80 14 132/81 99
10/14/23 11:41 10/14/23 11:41 10/14/23 11:41 10/14/23 11:41 10/14/23 07:25
Vital Signs
Temp Pulse Resp BP Pulse Ox
97.7 F 80 14 132/81 99
10/14/23 11:41 10/14/23 11:41 10/14/23 11:41 10/14/23 11:41 10/14/23 07:25
Intake & Output
10/12/23 10/13/23 10/14/23 06/24
06:59 06:59 06:59 06:59
Intake Total 250 / 250 1800 / 1800 660 / 660
Output Total 600 / 600
Balance -350 / -350 1800 / 1800 660 / 660
Physical Exam
Physical Exam
General: Well developed, well nourished in NAD.
Neck: Supple, no JVD, HJR, carotids +2 B/L, no bruits bilaterally.
Heart: Non displaced PMI, irregular, no murmurs, No S3, S4, no rubs.
Lungs: Scattered rhonchi
Extremities: No clubbing, cyanosis or edema bilaterally.
Neuro: Grossly nonfocal, awake, alert and oriented x3.
== END 2023-10-14 12:34 | disposition home or self-care (01) ==
LOC: 4 EAST ACU 23:24
PROVIDERS: Nurse Practitioner Family; Physician Assistant; ADMITTING PHYSICIAN Internal Medicine; ATTENDING PHYSICIAN Hospitalist; CONSULT PHYSICIAN Internal Medicine Cardiovascular Disease; EMERGENCY PHYSICIAN Emergency Medicine; FAMILY PHYSICIAN Family Medicine
DX: R55 Syncope and collapse (principal); M54.6 Pain in thoracic spine; W18.39XA Other fall on same level, initial encounter; Y93.01 Activity, walking, marching and hiking; R42 Dizziness and giddiness; R11.2 Nausea with vomiting, unspecified; S40.811A Abrasion of right upper arm, initial encounter; Y92.481 Parking lot as the place of occurrence of the external cause; I48.21 Permanent atrial fibrillation; J45.909 Unspecified asthma, uncomplicated; M10.9 Gout, unspecified; K80.20 Calculus of gallbladder without cholecystitis without obstruction; I08.3 Combined rheumatic disorders of mitral, aortic and tricuspid valves; R07.81 Pleurodynia; K44.9 Diaphragmatic hernia without obstruction or gangrene; N18.32 Chronic kidney disease, stage 3b; N40.0 Benign prostatic hyperplasia without lower urinary tract symptoms; I31.39 Other pericardial effusion (noninflammatory); N20.0 Calculus of kidney; K76.89 Other specified diseases of liver; E78.00 Pure hypercholesterolemia, unspecified; I12.9 Hypertensive chronic kidney disease with stage 1 through stage 4 chronic kidney disease, or unspecified chronic kidney disease; Q61.3 Polycystic kidney, unspecified; Z87.442 Personal history of urinary calculi; Z60.2 Problems related to living alone; Z86.73 Personal history of transient ischemic attack (TIA), and cerebral infarction without residual deficits; Z87.19 Personal history of other diseases of the digestive system; Z66 Do not resuscitate
CPT/HCPCS: 70450; 71260; 74177; 80048; 83735; 84132; 84443; 84484; 85025; 85027; 87070; 93005; 93306; 96361; 96374; 96375; 97161; 99285; G0378; Q9967

== ENCOUNTER → 2023-10-21 11:56 | Outpatient (REF) | payer MEDICARE, BC, SELFPAY | LOC: OLABPV 11:56 | PROVIDERS: ATTENDING PHYSICIAN Family Medicine | DX: I12.9 Hypertensive chronic kidney disease with stage 1 through stage 4 chronic kidney disease, or unspecified chronic kidney disease (principal); N18.32 Chronic kidney disease, stage 3b | CPT/HCPCS: 36415 ==

== ENCOUNTER → 2023-10-22 10:02 | Outpatient (REF) | payer MEDICARE, BC, SELFPAY ==
[2023-10-22 10:33] LABS: % Eosinophils 5.1 % (0-6); % Immature Granulocytes 0.4 % (0-0.5); % Lymphocytes 25.5 % (20.5-51.1); % Monocytes 8.4 % (1.7-9.3); % Neutrophils 59.6 % (42.2-75.2); Absolute Basophils 0.1 10^3/uL (0-0.2); Absolute Eosinophils 0.4 10^3/uL (0-0.7); Absolute Lymphocytes 2.1 10^3/uL (1.2-3.4); Absolute Monocytes 0.7 10^3/uL (0.1-0.6); Absolute Neutrophils 4.9 10^3/uL (1.4-6.5); Hematocrit 44.7 % (39.0-52.0); Hemoglobin 14.6 g/dL (13.0-18.0); Mean Corp Hgb Conc. 32.7 g/dL (33.0-37.0); Mean Corpuscular Hgb 28.3 pg (27.0-31.0); Mean Corpuscular Volume 86.6 fL (80.0-94.0); Mean Platelet Volume 11.9 fL (7.4-10.4); Nucleated Red Blood Cells % 0 % (-); Platelet Count 193 10^3/uL (130-400); Red Blood Cell Count 5.16 10^6/uL (4.70-6.10); Red Cell Dist. Width 15.8 % (11.5-14.5); White Blood Cell Count 8.2 10^3/uL (4.8-10.8)
[2023-10-22 12:06] LABS: Blood Urea Nitrogen 33 mg/dl (9-20); Calcium 9.1 mg/dl (8.4-10.2); Carbon Dioxide 25 mmol/L (22-30); Chloride 106 mmol/L (98-107); Glucose 101 mg/dl (70-99); Potassium 4.6 mmol/L (3.5-5.1); Sodium 141 mmol/L (135-145); eGFR 40.93
== END ==
LOC: OLABPV 10:02
PROVIDERS: ATTENDING PHYSICIAN Family Medicine
DX: I12.9 Hypertensive chronic kidney disease with stage 1 through stage 4 chronic kidney disease, or unspecified chronic kidney disease (principal); N18.32 Chronic kidney disease, stage 3b; Z79.01 Long term (current) use of anticoagulants
CPT/HCPCS: 36415; 80048; 85025

== ENCOUNTER → 2023-11-06 15:34 | Outpatient (REF) | payer MEDICARE, BC, SELFPAY | LOC: RCS 15:34 | PROVIDERS: ATTENDING PHYSICIAN Internal Medicine Cardiovascular Disease; FAMILY PHYSICIAN Family Medicine | DX: I31.39 Other pericardial effusion (noninflammatory) (principal); W19.XXXA Unspecified fall, initial encounter | CPT/HCPCS: 93308 ==